=== PATIENT | female | born 1960 | race American Indian/Alaskan Native ===

== ENCOUNTER 2025-02-25 20:14 | Emergency (ER) | payer BC, SELFPAY ==
--- NOTE | 2025-02-25 20:18 | EKG_ITS ---
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
[2025-02-25 20:23] VITALS: BP 130/80; PULSE 161; RESP 20; TEMP 38.2; O2SAT 93; BMI 34.7
--- NOTE | 2025-02-25 20:30 | PD.EDWEAK ---
ED Weakness RME/HPI General Chief complaint: General Adult/Misc Complain Stated complaint: CHILLS,FEVER,WEAK Time Seen by Provider: 02/25/25 20:30 Arrival date/time: 02/25/25 20:14 RME / HPI RME / HPI Narrative: This section includes all my notes and documentations, including HPI, PE, and ED course. Yamil Scales MD HPI: 64yo female with no significant past medical history presents to the ED for complaints of fever, vomiting, urinary frequency, and fatigue for the last few days. No cough, runny nose, sore throat or abdominal pain. Last bowel movement was yesterday. She is not on any medications. No other complaints reported. ROS: All negative except as documented in HPI. Physical Exam: General: Alert and oriented. Appearance of malaise noted. Fever noted. Eyes: Conjunctivae and lids clear. ENT: No nasal congestion. Pharynx normal. TM normal bilaterally. Neck: Supple. Heart: RRR. Lungs: No respiratory distress. Good air movement. No rhonchi, wheezing, rales. Abdomen: Soft and nontender. Normal bowel sounds. No distension. No rebound or guarding. Back: No CVA tenderness. Skin: Warm and dry. Neuro: Alert and oriented X 3. I reviewed all diagnostic test results. My interpretation of the EKG is sinus tachycardia with nonspecific ST-T changes. My interpretation of the chest x-ray is NAD. My review of the gallbladder US report is cholelithiasis. Blood tests remarkable for Sodium 133, Potassium 3.2, ESR 64, Lactic Acid 2.6, Total Bilirubin 2.7, CRP >10, Procalcitonin 7.80. UA shows positive leukocyte esterase, 22 RBCs, 121 WBCs, and 3+ bacteria. COVID/Influenza/RSV/Strep negative. At this point, diagnoses include UTI and gallstones. Treatment here included Potassium, Toradol, Zofran, NS, Rocephin, and Tylenol. Significant improvement noted. I discussed the case with our hospitalist.? About the presentation and exam and diagnostics and treatments here.? And need of further care in the hospital.? Declined to admit the patient because patient does not meet the criteria for admission. Based on my best medical judgment, made decision no further evaluation or treatment indicated at this time. Patient understands and agrees to the discharge instructions customized and printed, see below. Discharge instructions from Dr. Scales: 1. After evaluation, you have severe UTI (see attached handout). 2. Take cefdinir to kill the germs causing the infection. Increase oral fluid to flush it out. Maintain clear urine. If dark or yellow, increase oral fluid. 3. Zofran for nausea/vomiting. 4. Ibuprofen 800 mg every 6-8 hours today and tomorrow to decrease inflammation then as needed. 5. Tylenol with codeine for severe pain. 6. You also have gallstones. You need gallbladder to help digest fatty foods. To prevent future attacks with severe abdominal pain, avoid all fatty and oily and greasy and buttery and dairy foods. This usually means take out and fast food restaurants. 7. See a private doctor on 02/28/2025 for recheck. Ask to review all test results and official radiology reports, to make sure you receive all necessary follow-ups and monitoring, including final urine culture results from today. Ask for help seeing a surgeon to discuss elective surgery, to remove your gallbladder. 8. Seek immediate medical care with worsening or with any concerns. Yamil Scales MD Related Data Previous Rx's ?Medication ?Instructions ?Recorded acetaminophen 300 mg-codeine 30 mg 2 tab PO Q8H PRN pain #20 tabs 02/26/25 tablet cefdinir 300 mg capsule 300 mg PO BID #14 caps 02/26/25 ibuprofen 800 mg tablet 800 mg PO Q8H PRN pain #30 tabs 02/26/25 ondansetron 4 mg disintegrating 4 mg PO TID PRN nausea and 02/26/25 tablet vomiting 30 days #10 tabs Allergies Allergy/AdvReac Type Severity Reaction Status Date / Time No Known Allergies Allergy Verified 02/25/25 20:18 Review of Systems Review of Systems Systems Reviewed: All systems reviewed, normal except as documented Past Medical History Social History SMOKING STATUS: Never smoker ED Exam Narrative Physical exam: As noted in HPI. Course Course Course Narrative: 2029: Sepsis alert initiated. Orders made at this time are congruent with ED Adult Sepsis Order List. Re-evaluation is to be completed. 2225: NS IVF infused. 2255: Sepsis reassessment performed consisting of lab review, vitals, physical exam including auscultation of heart, lungs, and visual evaluation of capillary refills, mucosal membranes and extremities. Quality Measures Possible source: genitourinary Blood cultures ordered: yes Antibiotic ordered: Yes Pertinent labs: 02/25/25 02/25/25 00:04 20:47 Lactic Acid 1.4 mMol/L 2.6 H mMol/L (0.4-2.0) (0.4-2.0) Procalcitonin 7.80 H ng/ml (0.0-0.49) sepsis Orders Category Date Time Status Bedside COVID-19 Antigen Test NOW Care 02/25/25 20:25 Completed Bedside Influenza A&B Antigen Test NOW Care 02/25/25 20:25 Completed EKG (ED ONLY) *Do not use* NOW Care 02/25/25 20:18 Completed Saline [Insert IV] NOW Care 02/25/25 20:31 Completed Straight [In and Out Catheter] X1 Care 02/25/25 20:31 Completed EKG (ED Only) Stat Exams 02/25/25 20:18 Draft US gall bladder Stat Exams 02/25/25 21:57 Completed XR chest 1V portable Stat Exams 02/25/25 20:32 Completed Amylase Stat Lab 02/25/25 20:47 Completed Bilirubin,Direct Stat Lab 02/25/25 20:47 Completed Blood Culture (Lab) Stat Lab 02/25/25 20:44 Results CBC Stat Lab 02/25/25 20:47 Completed CMP [Comprehensive Metabolic Panel] Stat Lab 02/25/25 20:47 Completed CRP [C-Reactive Protein] Stat Lab 02/25/25 20:47 Completed ESR [Sed Rate (ESR)] Stat Lab 02/25/25 20:47 Completed Free T4 (Free Thyroxine) Stat Lab 02/25/25 20:47 Completed Lactate (Lactic Acid) Stat Lab 02/25/25 20:47 Completed Lactic Acid, 3 HR Stat Lab 02/25/25 00:04 Completed Lipase Stat Lab 02/25/25 20:47 Completed Magnesium Stat Lab 02/25/25 20:47 Completed Procalcitonin Stat Lab 02/25/25 20:47 Completed RSV [Respiratory Syncytial Virus Ag] Stat Lab 02/25/25 21:29 Completed Strep A Rapid Stat Lab 02/25/25 21:29 Completed TSH [Thyroid Stimulating Hormone] Stat Lab 02/25/25 20:47 Completed Troponin I Stat Lab 02/25/25 20:47 Completed UA, C/S IF [Urinalysis, C/S if Indicated] Stat Lab 02/25/25 21:06 Completed Urine Culture Stat Lab 02/25/25 21:06 Received Acetaminophen Ivpb [Ofirmev Inj] Med 02/25/25 20:31 Discontinued 1,000 mg in 100 ml IV X1 KCL 10% Liq UDC 15 ML Med 02/25/25 21:56 Discontinued 40 meq PO X1 ONE Ketorolac Inj [Toradol Inj] Med 02/25/25 20:31 Discontinued 30 mg IVP X1 ONE Ondansetron Inj [Zofran Inj] Med 02/25/25 20:32 Discontinued 4 mg IVP X1 ONE Sodium Chloride 0.9% 1000 ml [Ns] 1,000 ml Med 02/25/25 20:31 Discontinued IV 999 mls/hr Sodium Chloride 0.9% 1000 ml [Ns] 1,000 ml Med 02/25/25 20:31 Discontinued IV 999 mls/hr Sodium Chloride 0.9% 1000 ml [Ns] 1,000 ml Med 02/25/25 20:32 Discontinued IV 999 mls/hr cefTRIAXone/D5w 1gm IV premix [Rocephin/D5w 1gm IV Med 02/25/25 20:32 Discontinued premix] 1 gm in 50 ml IV X1 Vital Signs Vital signs: Vital Signs Temperature 100.8 F H 02/25/25 20:23 Pulse Rate 161 H 02/25/25 20:23 Respiratory Rate 20 02/25/25 20:23 Blood Pressure 130/80 02/25/25 20:23 Pulse Oximetry (%) 93 L 02/25/25 20:23 Oxygen Delivery Method Room Air 02/25/25 20:23 Weakness MDM Narrative MDM Narrative:: 64yo female with no significant past medical history presents to the ED for complaints of fever, vomiting, urinary frequency, and fatigue for the last few days. No cough, runny nose, sore throat or abdominal pain. Last bowel movement was yesterday. She is not on any medications. No other complaints reported. Patient data External records reviewed:: [facility] previous records (Per chart review, patient has no previous ED visits or admissions to this facility.) Clinical information provided by:: patient Social determinants that could affect healthcare access:: none Patient has the following chronic illnesses:: none How is presenting disease/condition affected by chronic disease/condition?: no chronic disease Evaluation data The following diagnostics were reviewed and interpreted by me:: lab results, radiology exam(s) and EKG tracing(s) (My interpretation of the EKG is: Sinus tachycardia (160 bpm) with nonspecific ST-T changes. Yamil Scales MD) Lab and/or radiology exams considered but not ordered:: none Interpretation Summary: I reviewed all diagnostic test results. My interpretation of the EKG is sinus tachycardia with nonspecific ST-T changes. My interpretation of the chest x-ray is NAD. My review of the gallbladder US report is cholelithiasis. Blood tests remarkable for Sodium 133, Potassium 3.2, ESR 64, Lactic Acid 2.6, Total Bilirubin 2.7, CRP >10, Procalcitonin 7.80. UA shows positive leukocyte esterase, 22 RBCs, 121 WBCs, and 3+ bacteria. COVID/Influenza/RSV/Strep negative. Medications / Prescriptions Medications or Prescriptions considered but not ordered:: none Medication administrations:: Medication Administration History Discontinued Medications Acetaminophen (Ofirmev Inj) 1,000 mg in 100 mls @ 250 mls/hr IV X1 ONE Stop: 02/25/25 20:54 Last Infusion: 02/25/25 21:40 Dose: Infused Documented By: Admin: 02/25/25 21:10 Dose: 250 mls/hr Documented By: EE Sodium Chloride (Ns) 1,000 mls @ 999 mls/hr IV .Q1H1M ONE Stop: 02/25/25 21:31 Last Infusion: 02/25/25 22:26 Dose: Infused Documented By: Admin: 02/25/25 21:09 Dose: 999 mls/hr Documented By: EE Sodium Chloride (Ns) 1,000 mls @ 999 mls/hr IV .Q1H1M ONE Stop: 02/25/25 21:31 Last Infusion: 02/25/25 22:26 Dose: Infused Documented By: Admin: 02/25/25 21:11 Dose: 999 mls/hr Documented By: EE Ceftriaxone Sodium/Dextrose (Rocephin/D5w 1gm Iv Premix) 1 gm in 50 mls @ 100 mls/hr IV X1 ONE Stop: 02/25/25 21:01 Last Infusion: 02/25/25 21:47 Dose: Infused Documented By: Admin: 02/25/25 21:11 Dose: 100 mls/hr Documented By: ANNIE Sodium Chloride (Ns) 1,000 mls @ 999 mls/hr IV .Q1H1M ONE Stop: 02/25/25 21:32 Last Infusion: 02/25/25 22:27 Dose: Infused Documented By: Admin: 02/25/25 21:11 Dose: 999 mls/hr Documented By: EE Ketorolac Tromethamine (Ketorolac Inj 30 Mg/Ml Vial) 30 mg IVP X1 ONE Stop: 02/25/25 20:32 Last Admin: 02/25/25 21:09 Dose: 30 mg Documented By: EE Ondansetron HCl (Ondansetron Inj 2 Mg/Ml Inj 2 Ml) 4 mg IVP X1 ONE; Protocol Stop: 02/25/25 20:33 Last Admin: 02/25/25 21:10 Dose: 4 mg Documented By: EE Potassium Chloride (Potassium Chloride 10% 20 Meq/15 Ml Udc) 40 meq PO X1 ONE Stop: 02/25/25 21:57 Last Admin: 02/25/25 22:25 Dose: 40 meq Documented By: ANNIE Potassium, Toradol, Zofran, NS, Rocephin, Tylenol Consultations Consultation(s) initiated? (list below): Yes Consultation #1 (Physician, Specialty, Details): I discussed the case with our hospitalist.? About the presentation and exam and diagnostics and treatments here.? And need of further care in the hospital.? Declined to admit the patient. Diagnosis Weakness Differential Diagnosis: sepsis, dehydration and other (UTI, pneumonia, COVID, influenza, electrolyte normalities) Most likely diagnosis given after review of the tests above:: UTI, Gallstones Admission Indicated Admission indicated?: not indicated Explain why admission is indicated or not indicated:: With significant improvement and no condition needing emergent intervention, there was no indication for admission. Admission Request Was there a request for admission?: No Disposition Plan Disposition Plan: Discharge Discharge Attestation Discharge Attestation: The patient and all family members were given an opportunity to ask questions and understood the discharge instructions. Discharge instructions specifically effects, indications for sooner follow up or return to the emergency department, and the expected course of current diagnosis. Patient condition: Stable Critical Care Time Critical Care Time Critical Care Time: Yes Total Critical Care Time (min.): 40 Attestation: The high probability of sudden, clinically significant deterioration in the patient?s condition required the highest level of my preparedness to intervene urgently. The services I provided to this patient were to treat and/or prevent clinically significant deterioration. Services included the following: chart data review, reviewing nursing notes and/or old charts, documentation time, regulatory consultant collaboration regarding findings and treatment options, medication orders and management, direct patient care, vital sign assessments and ordering, interpreting and reviewing diagnostic studies and lab tests. Aggregate critical care time includes only time during which I was engaged in work directly related to the patient?s care, as described above, whether at bedside or elsewhere in the Emergency Department. It did not include time spent performing other reported procedures or the services of residents, students, nurses or physician assistants. Discharge Plan Plan Patient Disposition: HOME (Self Care) Prescriptions/Referrals Prescriptions/Med Rec: New ibuprofen 800 mg tablet 800 mg PO Q8H PRN (Reason: pain) Qty: 30 0RF acetaminophen-codeine 300-30 mg tablet 2 tab PO Q8H MDD 6 PRN (Reason: pain) Qty: 20 0RF ondansetron 4 mg tablet,disintegrating 4 mg PO TID PRN (Reason: nausea and vomiting) 30 Days Qty: 10 0RF cefdinir 300 mg capsule 300 mg PO BID Qty: 14 0RF Referrals: No Primary/Family,Physician [Primary Care Provider] - In 1 week Problem List Clinical Impression: UTI (urinary tract infection), Gallstones Patient/Caregiver Discharge Instructions Discharge Activity: activity as tolerated Education Materials: ED Gallstones with Biliary Colic, ED CYSTITIS Female Adult Additional Instructions: Discharge instructions from Dr. Scales: 1. After evaluation, you have severe UTI (see attached handout).? 2. Take cefdinir to kill the germs causing the infection.? Increase oral fluid to flush it out.? Maintain clear urine.? If dark or yellow, increase oral fluid. 3. Zofran for nausea/vomiting.? 4. Ibuprofen 800 mg every 6-8 hours today and tomorrow to decrease inflammation then as needed. 5. Tylenol with codeine for severe pain. 6. You also have gallstones. You need gallbladder to help digest fatty foods. To prevent future attacks with severe abdominal pain, avoid all fatty and oily and greasy and buttery and dairy foods.? This usually means take out and fast food restaurants. 7. See a private doctor on 02/28/2025 for recheck.? Ask to review all test results and official radiology reports, to make sure you receive all necessary follow-ups and monitoring, including final urine culture results from today. Ask for help seeing a surgeon to discuss elective surgery, to remove your gallbladder. 8. Seek immediate medical care with worsening or with any concerns. Print Language: Congolese Stand Alone Forms: [employer] Award Info., Patient Portal Info Letter
--- NOTE | 2025-02-25 20:32 | XR_ITS ---
Examination: AP chest single view TECHNIQUE: AP portable semiupright chest single view Date and time: February 25, 20252058 hours INDICATIONS: Fever vomiting today. FINDINGS: Normal heart size. Lungs are clear. The osseous structures are intact IMPRESSION: No active disease
[2025-02-25 20:57] VITALS: BP 117/76; PULSE 118; RESP 32; TEMP 38.2; O2SAT 94
[2025-02-25 20:58] LABS: Lactate (Lactic Acid) 2.6 mMol/L (0.4-2.0)
[2025-02-25 21:03] LABS: Basophils # (Auto) 0.0 Thou/mm3 (0.0-0.2); Basophils % (Auto) 1 % (0-2.5); Eosinophils # (Auto) 0.0 Thou/mm3 (0.0-0.5); Eosinophils % (Auto) 0 % (0-10); Hematocrit 40.5 % (36.0-46.0); Hemoglobin 14.6 g/dL (12.0-16.0); Immature Granulocytes Auto 0.05 Thou/mm3 (0.00-0.00); Lymphocytes # (Auto) 0.4 Thou/mm3 (1.0-4.8); Lymphocytes % (Auto) 7 % (10-50); Mean Corpuscular HGB Conc 36.0 g/dl (31.0-37.0); Mean Corpuscular Hemoglobin 31.9 pg (25.0-35.0); Mean Corpuscular Volume 88 fL (80-100); Monocytes # (Auto) 0.4 Thou/mm3 (0.0-0.8); Monocytes % (Auto) 7 % (0-12); Neutrophils # (Auto) 5.1 Thou/mm3 (1.8-7.7); Neutrophils % (Auto) 85 % (37-80); Nucleated Red Blood Cell # 0.00 Thou/mm3 (0.00-0.00); Nucleated Red Blood Cell % 0 /100 WBC (0); RDW Standard Deviation 44.1 fL (36.4-46.3); Red Blood Count 4.58 Miln/mm3 (4.00-5.20); White Blood Count 6.0 Thou/mm3 (3.6-11.0)
[2025-02-25 21:09] VITALS: TEMP 38.2
[2025-02-25] MEDS: KETOROLAC INJ 30 MG/ML VIAL IVP (21:09)
[2025-02-25] MEDS: SODIUM CHLORIDE 0.9% 1000 ML 1,000 ML 999 ML IV ×3 (21:09→21:11)
[2025-02-25 21:10] LABS: Collection Type, Urine Clean Catch
[2025-02-25] MEDS: ACETAMINOPHEN IVPB 1,000 MG/100 ML VIAL 250 MG IV (21:10)
[2025-02-25] MEDS: ONDANSETRON INJ 2 MG/ML INJ 2 ML 4 MG IVP (21:10)
[2025-02-25] MEDS: cefTRIAXone/D5w 1gm IV premix 1 GM/50 ML BAG IV (21:11)
[2025-02-25 21:19] LABS: Bacteria,Urine 3+; Bilirubin,Urine 1+ (Negative); Blood,Urine 2+ (Negative); Color,Urine Drk-Yellow (Lt Yel-Yel); Glucose, Urine Trace (Negative); Hyaline Casts,Urine < 1 /hpf (0-1); Ketones,Urine 1+ (Negative); Leukocyte Esterase,Urine Positive (Negative); Nitrite,Urine Negative (Negative); PH,Urine 6.0 (5.0-7.0); Protein,Urine 1+ (Neg - Trace); RBC,Urine 22 /hpf (0-3); Specific Gravity,Urine 1.021 (1.001-1.035); Squamous Epithelial Cell,Urine 1 /hpf (0-5); Transitional Epi Cells,Urine 1 /hpf (0-5); Urobilinogen,Urine OVER mg/dL (0.0-1.0); WBC,Urine 121 /hpf (0-5)
[2025-02-25 21:20] LABS: Sed Rate (ESR) 64 mm/hr (0-30)
[2025-02-25 21:22] LABS: Clarity,Urine Cloudy (Clear/Hazy); Culture Indicated,Urine Yes
[2025-02-25 21:33] LABS: Alanine Aminotransferase 32 U/L (10-49); Albumin, Serum 3.3 gm/dL (3.4-4.8); Albumin/Globulin Ratio 0.7 (1.2-2.2); Alkaline Phosphatase 99 U/L (46-116); Amylase 21 U/L (30-118); Anion Gap 12 (7-16); Aspartate Amino Transferase 55 U/L (0-34); BUN/Creatinine Ratio 14 Ratio (12-20); Bilirubin,Direct 1.2 mg/dL (0.0-0.3); Bilirubin,Total 2.7 mg/dL (0.3-1.2); Blood Urea Nitrogen 11 mg/dL (9-23); C-Reactive Protein > 10.0 mg/dL (0.0-0.9); Calcium 7.9 mg/dL (8.3-10.6); Calcium (Corrected) 8.5 mg/dL (8.5-10.1); Carbon Dioxide 19.4 mMol/L (20.0-31.0); Chloride 102 mMol/L (98-107); Creatinine (Component) 0.8 mg/dL (0.6-1.3); Estimated Creatinine Clearance 73.3 mL/min (>60); Free T4 (Free Thyroxine) 1.03 ng/dL (0.89-1.76); Globulin 4.9 gm/dL (2.3-3.5); Glucose 175 mg/dL (74-106); Lipase 28 U/L (12-53); Magnesium 1.6 mg/dL (1.6-2.6); Osmolality,Calculated 269 (275-295); Potassium 3.2 mMol/L (3.4-5.1); Procalcitonin 7.80 ng/ml (0.0-0.49); Sodium 133 mMol/L (136-145); Thyroid Stimulating Hormone 1.13 uIU/mL (0.55-4.78); Total Protein 8.2 gm/dL (5.7-8.2); Troponin I 0.023 ng/mL (0.0-0.045); eGFR > 60 See Note
[2025-02-25 21:36] LABS: Platelet Count 74 Thou/mm3 (140-440)
[2025-02-25 21:42] LABS: Slide Review Platelets confirmed
--- NOTE | 2025-02-25 21:57 | XR_ITS ---
Examination: Abdomen sonogram, Limited Date and time: February 25 2025, 2333 hours. INDICATIONS: Nausea vomiting diarrhea several days. Technique: Real-time hobson scale transabdominal sonographic images of the upper abdomen obtained. Findings: Cholelithiasis,, gallbladder wall 0.6 cm. Common bile duct 0.4 cm Pancreatic head 3.4 cm Liver 14.6 cm, no focal liver lesions. Portal venous flow is normal Patent IVC. IMPRESSION: Cholelithiasis, recommend HIDA scan or MRCP follow-up to confirm cholecystitis
[2025-02-25 22:18] LABS: Strep A Rapid Negative (Negative)
[2025-02-25 22:19] LABS: Respiratory Syncytial Virus Ag Negative (Negative)
[2025-02-25] MEDS: POTASSIUM CHLORIDE 10% 20 MEQ/15 ML UDC 40 MEQ PO (22:25)
[2025-02-25 22:27] VITALS: TEMP 37.5
[2025-02-25 23:01] VITALS: BP 126/71; PULSE 92; RESP 19; TEMP 36.8; O2SAT 97
[2025-02-25 23:52] LABS: Reflex Lactate? Y
[2025-02-26 00:24] LABS: Lactic Acid, 3 HR 1.4 mMol/L (0.4-2.0)
[2025-02-26 01:54] VITALS: BP 104/47; PULSE 82; RESP 17; TEMP 37; O2SAT 98
== END 2025-02-26 01:56 | disposition home or self-care (01) ==
PROVIDERS: Emergency Provider Emergency Medicine
DX: N39.0 Urinary tract infection, site not specified (principal); K80.20 Calculus of gallbladder without cholecystitis without obstruction; R00.0 Tachycardia, unspecified
CPT/HCPCS: 51701; 36415; 71045; 76705; 80053; 81001; 82150; 82248; 83605; 83690; 83735; 84145; 84439; 84443; 84484; 85025; 85652; 86140; 87040; 87077; 87086; 87186; 87400; 87634; 87651; 87811; 93005; 96361; 96365; 96375; 99285; J0131; J0696; J1885; J2405; J7030; A9270